=== PATIENT | male | born 1975 | race Caucasian/White ===

== ENCOUNTER → 2020-09-14 | Outpatient (CLI) | payer OTHER ==
[~2020-09-14] MED LIST: DESYREL50 MG OR; LUVOX CR100 MG OR; NORCO 5-325 TA1 EACH OR; PRILOSEC40 MG OR
== END ==
LOC: SJCVCIMAG 07:53
PROVIDERS: ATTEND Internal Medicine
DX: I10 Essential (primary) hypertension (principal); R06.00 Dyspnea, unspecified; R53.82 Chronic fatigue, unspecified; E78.5 Hyperlipidemia, unspecified